=== PATIENT | female | born 1965 ===

== ENCOUNTER 2024-11-30 06:15 | Day surgery (SDC) | payer BC, SELFPAY ==
[2024-11-26 14:06] VITALS: BMI 28.5
[2024-11-26 15:08] LABS: Hematocrit 39.3 % (37.0-47.0); Hemoglobin 12.7 g/dL (12.0-16.0); Mean Corp Hgb Conc. 32.3 g/dL (33.0-37.0); Mean Corpuscular Volume 95.9 fL (81.0-99.0); Platelet Count 238 10^3/uL (130-400); Red Cell Dist. Width 12.8 % (11.5-14.5)
[2024-11-30] VITALS (8 sets, daily range): BP systolic 102–126; BP diastolic 53–82; BMI 28.5
[2024-11-30] MEDS: NORMOSOL-R/PLASMALYTE-A 1000 IV (09:58)
== END 2024-11-30 14:07 | disposition home or self-care (01) ==
LOC: SDS 06:15
PROVIDERS: ATTENDING PHYSICIAN Otolaryngology Facial Plastic Surgery; FAMILY PHYSICIAN Family Medicine
DX: J34.2 Deviated nasal septum (principal); J34.3 Hypertrophy of nasal turbinates
CPT/HCPCS: 30140; 30520; 36415; 85027; 93005